=== PATIENT | female | born 1990 | race Caucasian/White ===

== ENCOUNTER 2025-04-12 15:59 | Emergency (ER) | payer OTHER ==
[~2025-04-12] VITALS: Ht 167.6 cm; Wt 49.0 kg
[2025-04-12] MEDS ORDERED: NEOMY/BACITRA/POLYMYXIN B OINT UD PACKET TP ONE (17:44)
[2025-04-12] MEDS: NEOMY/BACITRA/POLYMYXIN B OINT UD PACKET TP ONE (17:45)
[2025-04-12 18:58] VITALS: BP 110/72; O2SAT 99
== END 2025-04-12 18:59 | disposition home or self-care (01) ==
LOC: ER 15:59
DX: S97.111A Crushing injury of right great toe, initial encounter (principal); S97.112A Crushing injury of left great toe, initial encounter; W23.0XXA Caught, crushed, jammed, or pinched between moving objects, initial encounter; Y93.89 Activity, other specified; Y92.89 Other specified places as the place of occurrence of the external cause; Y99.8 Other external cause status
CPT/HCPCS: 73620; A4606; A4663